=== PATIENT | male | born 1950 | race Caucasian/White ===

== ENCOUNTER 2025-02-20 11:04 | Emergency (ER) | payer OTHER, SELFPAY ==
[2025-02-20 11:06] VITALS: BP 96/62; BMI 31.1
[2025-02-20 11:08] VITALS: BP 96/62
[2025-02-20 11:48] VITALS: BP 133/86
[2025-02-20 12:00] VITALS: BP 143/60
--- NOTE | 2025-02-20 12:02 | ED.GENMED ---
History of Present Illness
General
Chief Complaint: Musculo-Skeletal Complaint
Source: patient
Exam Limitations: none
Time Seen by Provider: 02/20/25 11:07
Nursing documentation reviewed up to this point in time: agreed with
History of Present Illness
History of Present Illness:
see MDM
Phy Exam
Physical Exam
Physical Exam:
see MDM
Course
Orders/Labs/Results
Orders:
Orders
02/20/25 11:51
HYDROmorphone [Dilaudid] 0.5 mg IV NOW STA
Ketorolac [Toradol] 15 mg IV NOW STA
02/20/25 12:04
Basic Metabolic Panel Urgent
Complete Blood Count/With Diff Urgent
02/20/25 12:25
Hip, Right 2-3 Views [CR Hip - RT w/wo Pel 2-3 Vw*] Urgent
Comment:
Reason For Exam: atraumatic R hip pain
Include a pelvis x-ray?: Yes
Lumbar Spine Complete, 4 View [CR Lumbar Spine Comp Min 4 Vw*] Urgent
Comment:
Reason For Exam: R sciatica
02/20/25 14:09
0.9% Sodium Chloride 500 ml [Nss] 500 ml IV BOLUS
Dexamethasone Sod Phosphate [Decadron] 10 mg IV NOW STA
HYDROmorphone [Dilaudid] 1 mg IV NOW STA
Ketorolac [Toradol] 15 mg IV NOW STA
02/20/25 15:08
Case Management Consult ONCE
Case Management Consult: VN/Home Care
02/20/25 15:11
Potassium Urgent
Urinalysis Reflex To Culture Urgent
Date Specimen was Collected: 02/20/25
Time Specimen was Collected: 15:07
Abnormal Lab Results
02/20/25
12:04
RBC 6.39 H 10^6/uL
(4.70-6.10)
Hgb 18.3 H g/dL
(13.0-18.0)
Hct 55.5 H %
(39.0-52.0)
MPV 11.1 H fL
(7.4-10.4)
Absolute Monos (auto) 0.7 H 10^3/uL
(0.1-0.6)
BUN 27 H mg/dl
(9-20)
Glucose 113 H mg/dl
(70-99)
02/20/25 12:04
02/20/25 15:11
Vital Signs
Initial and Last Documented VS:
Initial Vital Signs
Temp Pulse Resp BP Pulse Ox
36.8 C 68 13 96/62 97
02/20/25 11:06 02/20/25 11:06 02/20/25 11:06 02/20/25 11:06 02/20/25 11:06
Last Documented Vital Signs
Temp Pulse Resp BP Pulse Ox
36.8 C 63 13 143/60 94
02/20/25 11:06 02/20/25 16:15 02/20/25 14:45 02/20/25 12:00 02/20/25 16:15
MDM/Problems Addressed
Differential Diagnosis Includes:
see MDM
MDM/Problems Addressed:
Note:
CHIEF COMPLAINT(S)
Difficulty walking due to right hip pain.
HISTORY OF PRESENT ILLNESS
The patient is a 75-year-old male, h/o HTN, who presents with severe right hip pain resulting in difficulty walking. the symptoms began yesterday after using the bathroom, after trying to get up off the toilet, the patient experienced a sudden
inability to stand due to pain localized in the right hip. Initially, the pain was just around the hip region, described as acute and worsening upon movement, with no significant radiation down the leg. The patient attempted to ambulate using a
walker with external assistance from a neighbors caregiver. Despite this, movement was exceedingly slow, taking about 10 minutes to reach his bedroom.
The patient denies any numbness in the leg but reports bilateral tingling in the toes. There has been no prior history of back problems or falls. The patient describes the pain as excruciating upon bearing weight on the right side and also reports
significant discomfort upon minimal movement of the right hip. There was no urinary incontinence or fecal incontinence, although he mentions having benign prostatic hyperplasia under urologic surveillance. The use of non-steroidal anti-inflammatory
drugs and acetaminophen offered limited relief.
he does report sometimes feeling pian in his calf when he has the pain in his hip but doesn't feel like it shoots down.
SOCIAL DETERMINANTS AFFECTING HEALTH
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 The patient lives in a community designated for individuals over 55 years of age with his spouse.
MEDICATIONS
The patient is on Losartan 50 mg for blood pressure control.
REVIEW OF SYSTEMS
- Musculoskeletal: Severe pain in the right hip, exacerbated by weight-bearing and movement. No history of falls or trauma preceding the onset of symptoms.
- Neurological: Tingling in the toes bilaterally, no numbness. No weakness of the legs reported.
- Urogenital: Mild urinary incontinence, history of benign prostatic hyperplasia.
- Cardiovascular: No chest pain, syncope, or palpitations.
- Respiratory: No shortness of breath or cough.
- Gastrointestinal: No abdominal pain, nausea, or vomiting.
- General: No fever or chills noted.
PE:
GENERAL: Alert , in no apparent distress, comfortable at rest
HEAD: NCAT
NECK: no midline tenderness, active ROM intact, no paraspinal muscle tenderness;
CARDIAC: Regular rate and rhythm, no edema
LUNGS: Clear breath sounds bilaterally, no acute respiratory distress, no wheezes/rales/rhonchi
ABDOMEN: Soft, without focal tenderness, no r/g, no cvat, normal bowel sounds, nondistended
NEUROLOGICAL: Alert and oriented, no focal neuro deficits, CN intact, 5/5 strength, sensation intact,
SKIN: Warm and dry,
MUSCULOSKELETAL: No edema, well perfused. Normal inspection of the right hip, left leg
Patient has no tenderness to palpation of the hip, minimal tenderness in the SI joint
a lot of pain with active flexion of R hip
neg straight leg raise, though ? mild calf pain with straight leg raise, just not shootin down from the back/hip
Back: No midline tenderness, mild dextroscoliosis, slight left paraspinal muscle tenderness on exam, no swelling
negative straight leg raise Bilaterally
PSYCH: Normal and appropriate interaction.
PROBLEM LIST
Acute:
- Severe right hip pain of unknown etiology, potentially secondary to musculoskeletal or neurological causes.
Chronic:
- Hypertension, well controlled with Losartan.
- Benign prostatic hyperplasia.
PLAN
- Administer intravenous Dilaudid for pain management.
- Obtain blood tests to evaluate any underlying issues contributing to the acute pain episode.
- Perform imaging studies once the patients pain is more controlled to further investigate the underlying cause of the hip pain.
DIFFERENTIAL DIAGNOSIS
The Differential Diagnosis includes, in no particular order and is not limited to:
1. Sciatica
2. Hip fracture
3. Avascular necrosis of the femoral head
4. Vertebral compression fracture
5. Osteoarthritis flare
6. Psoas abscess
7. Disc herniation
8. Meralgia paresthetica
9. Pelvic fracture
10. Hip joint effusion
hip bursitis
hip and spine xrays indep reviewed mild OA
no obvious fx
after several rounds of pain meds, pt is ambulatory with steady gait with walker, much improved from arrival
his other labs/ua are unremarkable
he did get asome IVF, i think he was mildy dry
given his ability to weigh tbear, no red flag sypmtoms, very positional pain in the hip, ddx: bursitis/oa/sciatica
will treat with pain meds, steorids
*Pulse Oximetry
SaO2: 98
Oxygen Mode of Delivery: Room air
Patient hypoxic: no (97)
*Critical Care Note
Total Time (30-74mins, 75-104mins- exclusive of procedures): Not Applicable
ED Attending Note
-
Portions of this chart may have been created with voice recognition software.� Occasional wrong word or��sound alike� substitutions may have occurred due to the inherent limitations of voice recognition software.
Discharge Plan
Departure
Patient Disposition: Home (Routine Discharge)
Date of Disposition: 02/20/25
Time of Disposition: 15:42
Patient with high blood pressure during this ER visit?: Yes
Condition: Fair
Discharge Problem:
Acute hip pain, Sciatica
Instructions: Hip Pain ED, Sciatica - ED discharge instructions
Prescriptions:
New
methylprednisolone [Medrol (Garry)] 4 mg tablets,dose pack
See Rx Instructions .ROUTE .COMPLEX Qty: 21 0RF
Rx Instructions:
for 6 days
docusate sodium [Colace] 100 mg capsule
100 mg PO BID Qty: 14 0RF
oxycodone 5 mg tablet
5 mg PO Q8H PRN (Reason: Pain) Qty: 12 0RF
Referrals:
Hiren Lynn MD [Family Provider, Internal Medicine] - Follow up in 2-3 days
Activity Restrictions/Additional Instructions:
You have arthritis in your back and hip mildly but this could be sciatica which is a pinched nerve. You should try Tylenol 3 times a day, you can take Motrin once a day and then use the steroid pack as directed, start tomorrow morning make sure you
follow the directions for the next 6 days. This will help with inflammation. You can also take oxycodone for more severe pain 5 mg every 8 hours as needed. Use the walker when you walk. If you are finding that you are having more difficulty
walking or you are having any numbness tingling or weakness in your leg, incontinence or peeing or pooping on yourself or inability to urinate with the pain is getting worse you should return to the emergency department. Otherwise you should
follow-up with your family doctor and consider needing an MRI if your pain continues.
Interventions
Interventions:
*Risk Screen - Suicide Last Done: 02/20/25 11:06
*General Assessment Last Done: 02/20/25 11:06
*Neglect/Abuse Screening Last Done: 02/20/25 11:06
*ED- Fall Risk Assessment Last Done: 02/20/25 11:06
*ED COVID-19 Vaccine History Last Done: 02/20/25 11:06
*Nursing Disposition Last Done: 02/20/25 16:32
ED-Musculoskeletal Assessment Last Done: 02/20/25 11:06
Discharge Date and Time
Discharge Date/Time: 02/20/25 16:32
Print Language: SLOVAK
[2025-02-20] MEDS: TORADOL 15 MG IV ×2 (12:08→14:20)
[2025-02-20] MEDS: DILAUDID 0.5 MG IV (12:08)
[2025-02-20 12:23] LABS: Hematocrit 55.5 % (39.0-52.0); Hemoglobin 18.3 g/dL (13.0-18.0); Mean Corp Hgb Conc. 33.0 g/dL (33.0-37.0); Mean Corpuscular Volume 86.9 fL (80.0-94.0); Nucleated Red Blood Cells % 0 % (-); Platelet Count 306 10^3/uL (130-400); Red Cell Dist. Width 13.5 % (11.5-14.5)
[2025-02-20 12:41] LABS: Blood Urea Nitrogen 27 mg/dl (9-20); Calcium 8.8 mg/dl (8.4-10.2); Carbon Dioxide 28 mmol/L (22-30); Chloride 107 mmol/L (98-107); Estimated Creatinine Clearance 81 ml/min; Glucose 113 mg/dl (70-99); Sodium 139 mmol/L (135-145); eGFR > 60.00
[2025-02-20] MEDS: DILAUDID 1 MG IV (14:20)
[2025-02-20] MEDS: DECADRON 10 MG IV (14:20)
[2025-02-20] MEDS: NSS 500 IV (14:21)
[2025-02-20 15:31] LABS: Urine Character Clear (Clear)
[2025-02-20 15:38] LABS: Potassium 4.4 mmol/L (3.5-5.1)
--- NOTE | 2025-02-20 16:21 | CM ---
Received CM consult, I met with pt bedside in ED. Pt lives with his in [address] apartment community, [facility].
Apartment is handicap accessible.
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
Does have quad cane and rollator in home.
Discussed Home PT/OT and homebound requirement, pt states he needs to go to work daily as he works alone and is working on several projects.
[facility] [address] [place] [address] Rd. and would like to go there for OP PT, it is close to his office.
Discussed with Tia MARTIN, she will write script for OP PT.
Pt plans to call one of his sons for transport home, one lives in [facility] and the other lives in [place]. States he will use [employer] or [employer] to get to pt and work.
No other CM needs at this time.
== END 2025-02-20 16:32 | disposition home or self-care (01) ==
LOC: EMR 11:04
PROVIDERS: Physician Assistant; EMERGENCY PHYSICIAN Emergency Medicine; FAMILY PHYSICIAN Internal Medicine
DX: M25.551 Pain in right hip (principal); M54.31 Sciatica, right side; I10 Essential (primary) hypertension
CPT/HCPCS: 99284; 96374; 96375; 96376; 72110; 73502; 80048; 81003; 84132; 85025